=== PATIENT | female | born 1935 ===

== ENCOUNTER 2017-12-29 09:59 | Inpatient (IN) | payer MEDICARE ==
--- NOTE | 2017-12-29 10:33 | ED PDOC ---
HPI: SOB/CHF/COPD Time Seen by Provider: 12/29/17 10:00 Chief Complaint (Nursing): Shortness Of Breath Chief Complaint (Provider): Shortness of breath History Per: Patient History/Exam Limitations: no limitations Onset/Duration Of Symptoms: Days (x1) Current Symptoms Are (Timing): Still Present Associated Symptoms: denies: Fever, Chills, Chest Pain, Productive Cough Additional Complaint(s): Jennie Olmos is an 82 year old woman with a past medical history of atrial fibrillation, lymphedema, hypertension, diabetes, and venostasis who is presenting to the ER with complaints of shortness of breath, onset 1 day ago. Patient denies any fevers, chills, cough, vomiting, nausea or chest pain. She offers no other medical complaints at this time. PMD: Bright Liang Past Medical History Reviewed: Historical Data, Nursing Documentation, Vital Signs Vital Signs: Last Vital Signs Temp 97.6 F 12/30/17 19:51 Pulse 85 12/30/17 19:51 Resp 20 12/30/17 19:51 BP 141/76 12/30/17 19:51 Pulse Ox 96 12/30/17 19:51 - Medical History PMH: Atrial Fibrillation, Diabetes, HTN Other PMH: venostasis, lymphedema - Surgical History Surgical History: No Surg Hx - Family History Family History: States: Unknown Family Hx - Social History Current smoker - smoking cessation education provided: No Alcohol: None Drugs: Denies - Home Medications Home Medications: Ambulatory Orders Medication Instructions Recorded Clobetasol 0.05% [Temovate CREAM] 1 appl TOP Q12 12/29/17 Glipizide [Glipizide ER] 2.5 mg PO DAILY 12/29/17 LORazepam [Ativan] 0.5 mg PO Q12 PRN 12/29/17 Lisinopril [Zestril] 10 mg PO DAILY 12/29/17 Penicillin VK [Penicillin VK Tab] 500 mg PO DAILY 12/29/17 - Allergies Allergies/Adverse Reactions: Allergies Allergy/AdvReac Type Severity Reaction Status Date / Time No Known Allergies Allergy Verified 11/17/16 13:14 Review of Systems ROS Statement: Except As Marked, All Systems Reviewed And Found Negative Constitutional: Negative for: Fever, Chills Cardiovascular: Negative for: Chest Pain Respiratory: Positive for: Shortness of Breath. Negative for: Cough Gastrointestinal: Negative for: Nausea, Vomiting Physical Exam - Reviewed Nursing Documentation Reviewed: Yes Vital Signs Reviewed: Yes - Physical Exam Appears: Positive for: Non-toxic, No Acute Distress Head Exam: Positive for: ATRAUMATIC, NORMAL INSPECTION, NORMOCEPHALIC Skin: Positive for: Normal Color, Warm, Dry Eye Exam: Positive for: EOMI, Normal appearance, PERRL Neck: Positive for: Normal, Painless ROM, Supple Cardiovascular/Chest: Positive for: Other (rapid atrial fibrillation, heart rate in 180s) Respiratory: Positive for: Normal Breath Sounds, Other (tachypneic, unable to speak in full sentences) Gastrointestinal/Abdominal: Positive for: Normal Exam, Soft. Negative for: Tenderness Back: Positive for: Normal Inspection. Negative for: L CVA Tenderness, R CVA Tenderness, Vertebral Tenderness Extremity: Positive for: Normal ROM, Other (chronic venostasis changes, skin peeling bilaterally knee to foot) DTR - Ankle (R): 2+ DTR - Ankle (L): 2+ Neurologic/Psych: Positive for: Alert, Oriented - Laboratory Results Result Diagrams: 12/30/17 05:00 12/29/17 16:10 - ECG O2 Sat by Pulse Oximetry: 97 (RA) Pulse Ox Interpretation: Normal Medical Decision Making Medical Decision Making: Time: 10:19 Plan: shortness of breath --B-Type Natriuretic peptide --CMP --Troponin --CBC --Partial Thromboplastin --Coag --CXR --Cardizem 10 mg IVP --Blood culture --Urine Culture --Urinalysis Labs and workup ordered to rule out rapid atrial fibrillation, congestive heart failure exacerbation, or pneumonia. Called Dr. Liang, who has not returned call. 11:45 Dr. Liang called back, recommended consulting cardiology; states pt has no hist of a fib so this is new onset. consult with Dr. Nguyen. Pending call from Dr. Nguyen. Patient's family informed of the case and patient's status. 12:[address] Nguyen regarding patient. There is agreement to admit patient and he will see pt. Scribe Attestation: Documented by Lenore Camargo, acting as a scribe for Casey Mejia MD. Provider Scribe Attestation: All medical record entries made by the Scribe were at my direction and personally dictated by me. I have reviewed the chart and agree that the record accurately reflects my personal performance of the history, physical exam, medical decision making, and the department course for this patient. I have also personally directed, reviewed, and agree with the discharge instructions and disposition. Disposition - Clinical Impression Clinical Impression: Chronic congestive heart failure, Dyspnea - Patient ED Disposition Is Patient to be Admitted: Yes - Disposition Disposition Time: 12:00 Condition: GUARDED
[2017-12-29 10:34] VITALS: BMI 44.9
[2017-12-29 11:04] LABS: BASO # 0.1 K/uL (0.0-0.2); BASO % 0.6 % (0.0-2.0); EOS # 0.1 K/uL (0.0-0.7); EOS % 0.4 % (0.0-4.0); HEMOGLOBIN 12.7 g/dL (12.0-16.0); LYMPH # 2.4 K/uL (1.0-4.3); LYMPH % 18.1 % (20.0-40.0); MEAN CELL VOLUME 71.3 fl (81.0-99.0); MEAN CORPUSCULAR HEMOGLOBIN 21.9 pg (27.0-31.0); MEAN CORPUSCULAR HGB CONC 30.7 g/dL (33.0-37.0); MEAN PLATELET VOLUME 9.7 fl (7.2-11.7); MONO # 0.7 K/uL (0.0-0.8); MONO % 5.2 % (0.0-10.0); NEUT # 10.2 K/uL (1.8-7.0); NEUT % 75.7 % (50.0-75.0); NRBC % 0.1 % (0.0-0.0); RBC 5.82 Mil/uL (3.80-5.20); WHITE BLOOD COUNT 13.5 K/uL (4.8-10.8)
[2017-12-29 11:06] LABS: PROTHROMBIN TIME 10.5 Seconds (9.8-13.1)
[2017-12-29 11:08] LABS: PARTIAL THROMBOPLASTIN TIME 23.5 Seconds (25.6-37.1)
[2017-12-29 11:14] LABS: GFR AFRICAN-AMERICAN > 60; GFR NON-AFRICAN AMERICAN > 60
[2017-12-29 11:19] LABS: ALB/GLOB RATIO 0.9 (1.0-2.1); ALBUMIN 3.8 g/dL (3.5-5.0); ALT/SGPT 22 U/L (9-52); AST/SGOT 36 U/L (14-36); BLOOD UREA NITROGEN 27 mg/dl (7-17)
[2017-12-29 11:24] LABS: B-TYPE NATRIURETIC PEPTIDE 3530 pg/ml (0-900)
--- NOTE | 2017-12-29 12:23 | RAD ---
PROCEDURE: CHEST RADIOGRAPH, 1 VIEW HISTORY: Shortness of breath. COMPARISON: 03/01/2013 FINDINGS: LUNGS: Clear. PLEURA: No pneumothorax or pleural fluid seen. CARDIOVASCULAR: Cardiomegaly. No evidence of acute, significant cardiovascular disease. OSSEOUS STRUCTURES: No significant abnormalities. VISUALIZED UPPER ABDOMEN: Normal. OTHER FINDINGS: None. IMPRESSION: No active disease. No acute/significant interval changes.
--- NOTE | 2017-12-29 18:38 | CP.PCM.CON ---
History of Present Illness - History of Present Illness History of Present Illness: 82 year old female admitted with rapid atrial fibrillation for 3 days. Pt reports dyspnea. Denies chest pain during tachycardia. PMH Htn, DM2, Chronic LE edema Pt converted to NSR with 10 mg IV Cardiazem. Hemodynamically stable. CXR is normal. No pleuretic pain. HR 86 bpm. Past Patient History - Infectious Disease Hx of Infectious Diseases: None - Past Medical History & Family History Past Medical History?: Yes - Past Social History Smoking Status: Never Smoked - CARDIAC Hx Atrial Fibrillation: Yes Hx Hypertension: Yes - RENAL Hx Chronic Kidney Disease: No - ENDOCRINE/METABOLIC Hx Diabetes Mellitus Type 2: Yes - INTEGUMENTARY Hx Cellulitis: Yes - MUSCULOSKELETAL/RHEUMATOLOGICAL Hx Falls: No - PSYCHIATRIC Hx Substance Use: No - ANESTHESIA Hx Anesthesia: No Hx Anesthesia Reactions: No Hx Malignant Hyperthermia: No Has any member of the family had a problem w/ anesthesia?: No Meds Allergies/Adverse Reactions: Allergies Allergy/AdvReac Type Severity Reaction Status Date / Time No Known Allergies Allergy Verified 11/17/16 13:14 - Medications Medications: Current Medications Clobetasol Propionate (Temovate Cream) 1 applic TOP Q12 [facility] Enoxaparin Sodium (Lovenox) 40 mg SC DAILY [facility] PRN Reason: Protocol Glipizide (Glucotrol Xl) 2.5 mg PO DAILY [facility] Vancomycin HCl 1 gm/ Sodium (Chloride) 250 mls @ 166.667 mls/hr IVPB Q12H [facility]J PRN Reason: Protocol Lisinopril (Zestril) 10 mg PO DAILY TJ Lorazepam (Ativan) 0.5 mg PO Q12 PRN PRN Reason: Anxiety Penicillin V Potassium (Pen-Vee K) 500 mg PO DAILY [facility] PRN Reason: Protocol Last Admin: 12/29/17 18:08 Dose: 500 mg Physical Exam - Neck Exam Neck exam: Positive for: Normal Inspection - Respiratory Exam Respiratory Exam: Clear to Auscultation Bilateral - Cardiovascular Exam Cardiovascular Exam: REGULAR RHYTHM - GI/Abdominal Exam GI & Abdominal Exam: Normal Bowel Sounds - Extremities Exam Extremities exam: Positive for: pedal edema Additional comments: chronic stasis changes Results - Vital Signs Recent Vital Signs: Last Vital Signs Temp 97.1 F L 12/29/17 15:36 Pulse 76 12/29/17 15:36 Resp 20 12/29/17 15:58 BP 145/80 12/29/17 15:36 Pulse Ox 99 12/29/17 15:36 - Labs Result Diagrams: 12/29/17 10:41 12/29/17 16:10 Labs: Laboratory Results - last 24 hr 12/29/17 12/29/17 12/29/17 10:41 10:41 10:41 WBC 13.5 H RBC 5.82 H Hgb 12.7 Hct 41.5 MCV 71.3 L MCH 21.9 L MCHC 30.7 L RDW 17.0 H Plt Count 294 MPV 9.7 Neut % (Auto) 75.7 H Lymph % (Auto) 18.1 L [place] % (Auto) 5.2 Eos % (Auto) 0.4 Baso % (Auto) 0.6 Neut # (Auto) 10.2 H Lymph # (Auto) 2.4 [place] # (Auto) 0.7 Eos # (Auto) 0.1 Baso # (Auto) 0.1 PT 10.5 INR 1.0 APTT 23.5 L Sodium 141 Potassium 5.4 H Chloride 102 Carbon Dioxide 23 Anion Gap 21 H BUN 27 H Creatinine 0.7 Est GFR ( Amer) > 60 Est GFR (Non-Af Amer) > 60 Random Glucose 213 H Calcium 9.0 Total Bilirubin 0.7 AST 36 ALT 22 Alkaline Phosphatase 87 Troponin I < 0.0120 NT-Pro-B Natriuret Pep 3530 H Total Protein 8.0 Albumin 3.8 Globulin 4.2 H Albumin/Globulin Ratio 0.9 L 12/29/17 16:10 WBC RBC Hgb Hct MCV MCH MCHC RDW Plt Count MPV Neut % (Auto) Lymph % (Auto) [place] % (Auto) Eos % (Auto) Baso % (Auto) Neut # (Auto) Lymph # (Auto) [place] # (Auto) Eos # (Auto) Baso # (Auto) PT INR APTT Sodium Potassium 4.7 Chloride Carbon Dioxide Anion Gap BUN Creatinine Est GFR ( Amer) Est GFR (Non-Af Amer) Random Glucose Calcium Total Bilirubin AST ALT Alkaline Phosphatase Troponin I < 0.0120 NT-Pro-B Natriuret Pep Total Protein Albumin Globulin Albumin/Globulin Ratio Assessment & Plan - Assessment and Plan (Free Text) Assessment: 82 year old female with rapid atrial fibrillation , high ventricular rate, converted to NSR. R/O FL, EKG NSR no acute st-t changes. Pt resting comfortably BNP elevated #1 start Amiodarone 200mg qd now #2 ECHO for LVEF #3 Continue Telemetry #4 Check TFTs
--- NOTE | 2017-12-29 18:44 | CP.PCM.CON ---
History of Present Illness - History of Present Illness History of Present Illness: Jennie Olmos is an 82 year old woman with a past medical history of atrial fibrillation, lymphedema, hypertension, diabetes, and venostasis who is presenting to the ER with complaints of shortness of breath, onset 1 day ago. Patient denies any fevers, chills, cough, vomiting, nausea or chest pain. She offers no other medical complaints at this time. Has chronic lymphedema on Pen VK for over 1 year from [facility] redness and swelling recently worse now with SOB new a fib r/o sepsis - Medical History PMH: Atrial Fibrillation, Diabetes, HTN Other PMH: venostasis, lymphedema Review of Systems - Review of Systems All systems: reviewed and no additional remarkable complaints except - Constitutional Constitutional: As Per HPI - EENT Eyes: absent: As Per HPI, Blind Spots, Blurred Vision, Change in Vision, Decreased Night Vision, Diplopia, Discharge, Dry Eye, Exophthalmos, Floaters, Irritation, Itchy Eyes, Loss of Peripheral Vision, Pain, Photophobia, Requires Corrective Lenses, Sees Flashes, Spots in Vision, Tunnel Vision, Other Visual Disturbances, Loss of Vision, Other Ears: absent: As Per HPI, Decreased Hearing, Ear Discharge, Ear Pain, Tinnitus, Abnormal Hearing, Disequilibrium, Dizziness, Other Nose/Mouth/Throat: absent: As Per HPI, Epistaxis, Nasal Congestion, Nasal Discharge, Nasal Obstruction, Nasal Trauma, Nose Pain, Post Nasal Drip, Sinus Pain, Sinus Pressure, Bleeding Gums, Change in Voice, Dental Pain, Dry Mouth, Dysphagia, Halitosis, Hoarsness, Lip Swelling, Mouth Lesions, Mouth Pain, Odynophagia, Sore Throat, Throat Swelling, Tongue Swelling, Facial Pain, Neck Pain, Neck Mass, Other - Breasts Breasts: absent: As Per HPI, Change in Shape, Mass, Pain, Nipple Discharge, Nipple Inversion, Skin Changes, Swelling, Other - Cardiovascular Cardiovascular: As Per HPI - Respiratory Respiratory: As Per HPI, Cough, Dyspnea. absent: Hemoptysis - Gastrointestinal Gastrointestinal: absent: As Per HPI, Abdominal Pain, Belching, Bloating, Change in Bowel Habits, Change in Stool Character, Coffee Ground Emesis, Constipation, Cramping, Diarrhea, Dyspepsia, Dysphagia, Early Satiety, Excessive Flatus, Fecal Incontinence, Heartburn, Hematemesis, Hematochezia, Loose Stools, Melena, Nausea, Odynophagia, Temesmus, Vomiting, Other - Genitourinary Genitourinary: absent: As Per HPI, Change in Urinary Stream, Difficulty Urinating, Dysuria, Flank Pain, Hematuria, Pyuria, Nocturia, Urinary Incontinence, Urinary Frequency, Urinary Hesitance, Urinary Urgency, Voiding Freq/Small Amts, Freq UTI, Hx Renal/Bladder Calculi, Hx /Renal Surgery, Bladder Distension, Other - Reproductive: Female Reproductive:Female: absent: As Per HPI, Amenorrhea, Amenorrhea/ Control, Currently Menstual, Cycle <21 Days, Cycle >35 Days, Cycle Variable, Menses 1-7 Days, Menses >/= 8 Days, Menses Variable, Cycle > 4 Weeks Between, No Menses for 6 Months, Heavy Menses, Light Menses, Normal Menses, Spotting Between Cycles , S/P Hysterectomy, Menopausal, Post Menopausal, Premenarche, Abnormal Vaginal Bleeding, Dysmenorrhea, Dyspareunia, Genital Lesions, Genital Pruritis, Pelvic Pain, Prolapse Symptoms, Sexual Dysfunction, Vaginal Discharge, Vaginal Dryness , Vaginal Odor, Vaginal Pruritis, Other - Menstruation Menstruation: absent: As Per HPI, Amenorrhea, Amenorrhea/ Control, Currently Menstual, Cycle <21 Days, Cycle >35 Days, Cycle Variable, Menses 1-7 Days, Menses >/= 8 Days, Menses Variable, Cycle > 4 Weeks Between, No Menses for 6 Months, Heavy Menses, Light Menses, Normal Menses, Spotting Between Cycles , S/P Hysterectomy, Menopausal, Post Menopausal, Premenarche, Abnormal Vaginal Bleeding, Dysmenorrhea, Other - Musculoskeletal Musculoskeletal: As Per HPI - Integumentary Integumentary: As Per HPI - Neurological Neurological: absent: As Per HPI, Abnormal Gait, Abnormal Hearing, Abnormal Movements, Abnormal Speech, Behavioral Changes, Burning Sensations, Confusion, Convulsions, Disequilibrium, Dizziness, Numbness, Focal Weakness, Frequent Falls , Headaches, Lack of Coordination, Loss of Vision, Memory Loss, Paresthesias, Radicular Pain, Restless Legs, Sensory Deficit, Syncope, Tingling, Tremor, Vertigo, Weakness, Other Visual Disturbances, Other - Psychiatric Psychiatric: absent: As Per HPI, Abnormal Sleep Pattern, Anhedonia, Anxiety, Auditory Hallucinations, Behavioral Changes, Change in Appetite, Change in Libido, Confusion, Depression, Difficulty Concentrating, Hallucinations, Homicidal Ideation, Hopelessness, Irritability, Memory Loss, Mood Swings, Panic Attacks, Paranoia, Suicidal Ideation, Visual Hallucinations, Tactile Hallucinations, Other - Endocrine Endocrine: absent: As Per HPI, Change in Body Appearance, Change in Libido, Cold Intolorance, Deepening of Voice, Excessive Sweating, Fatigue, Flushing, Heat Intolorance, Increase in Ring/Shoe/Hat Size, Palpitations, Polydipsia, Polyphagia, Polyuria, Other - Hematologic/Lymphatic Hematologic: absent: As Per HPI, Easy Bleeding, Easy Bruising, Lymphadenopathy, Other Past Patient History - Infectious Disease Hx of Infectious Diseases: None - Past Medical History & Family History Past Medical History?: Yes - Past Social History Smoking Status: Never Smoked - CARDIAC Hx Atrial Fibrillation: Yes Hx Hypertension: Yes - RENAL Hx Chronic Kidney Disease: No - ENDOCRINE/METABOLIC Hx Diabetes Mellitus Type 2: Yes - INTEGUMENTARY Hx Cellulitis: Yes - MUSCULOSKELETAL/RHEUMATOLOGICAL Hx Falls: No - PSYCHIATRIC Hx Substance Use: No - ANESTHESIA Hx Anesthesia: No Hx Anesthesia Reactions: No Hx Malignant Hyperthermia: No Has any member of the family had a problem w/ anesthesia?: No Meds Allergies/Adverse Reactions: Allergies Allergy/AdvReac Type Severity Reaction Status Date / Time No Known Allergies Allergy Verified 11/17/16 13:14 - Medications Medications: Current Medications Clobetasol Propionate (Temovate Cream) 1 applic TOP Q12 [facility] Enoxaparin Sodium (Lovenox) 40 mg SC DAILY [facility]J PRN Reason: Protocol Glipizide (Glucotrol Xl) 2.5 mg PO DAILY [facility] Vancomycin HCl 1 gm/ Sodium (Chloride) 250 mls @ 166.667 mls/hr IVPB Q12H [facility]J PRN Reason: Protocol Lisinopril (Zestril) 10 mg PO DAILY [facility]J Lorazepam (Ativan) 0.5 mg PO Q12 PRN PRN Reason: Anxiety Penicillin V Potassium (Pen-Vee K) 500 mg PO DAILY [facility]J PRN Reason: Protocol Last Admin: 12/29/17 18:08 Dose: 500 mg Physical Exam - Constitutional Appears: In Acute Distress - Head Exam Head Exam: NORMOCEPHALIC - Eye Exam Eye Exam: absent: Scleral icterus Pupil Exam: NORMAL ACCOMODATION - ENT Exam ENT Exam: Mucous Membranes Dry, Normal External Ear Exam, Normal Oropharynx - Neck Exam Neck exam: Negative for: Lymphadenopathy - Respiratory Exam Respiratory Exam: Decreased Breath Sounds - Cardiovascular Exam Cardiovascular Exam: REGULAR RHYTHM - GI/Abdominal Exam GI & Abdominal Exam: Diminished Bowel Sounds, Soft. absent: Tenderness - Rectal Exam Rectal Exam: Deferred - Exam Exam: NORMAL INSPECTION - Extremities Exam Extremities exam: Positive for: calf tenderness, pedal edema, tenderness. Negative for: pedal pulses present - Back Exam Back exam: absent: CVA tenderness (L), CVA tenderness (R) - Neurological Exam Neurological exam: Alert, CN II-XII Intact, Oriented x3, Reflexes Normal - Psychiatric Exam Psychiatric exam: Normal Mood - Skin Skin Exam: Dry, Intact Results - Vital Signs Recent Vital Signs: Last Vital Signs Temp 97.1 F L 12/29/17 15:36 Pulse 76 12/29/17 15:36 Resp 20 12/29/17 15:58 BP 145/80 12/29/17 15:36 Pulse Ox 99 12/29/17 15:36 - Labs Result Diagrams: 12/29/17 10:41 12/29/17 16:10 Labs: Laboratory Results - last 24 hr 12/29/17 12/29/17 12/29/17 10:41 10:41 10:41 WBC 13.5 H RBC 5.82 H Hgb 12.7 Hct 41.5 MCV 71.3 L MCH 21.9 L MCHC 30.7 L RDW 17.0 H Plt Count 294 MPV 9.7 Neut % (Auto) 75.7 H Lymph % (Auto) 18.1 L [place] % (Auto) 5.2 Eos % (Auto) 0.4 Baso % (Auto) 0.6 Neut # (Auto) 10.2 H Lymph # (Auto) 2.4 [place] # (Auto) 0.7 Eos # (Auto) 0.1 Baso # (Auto) 0.1 PT 10.5 INR 1.0 APTT 23.5 L Sodium 141 Potassium 5.4 H Chloride 102 Carbon Dioxide 23 Anion Gap 21 H BUN 27 H Creatinine 0.7 Est GFR ( Amer) > 60 Est GFR (Non-Af Amer) > 60 Random Glucose 213 H Calcium 9.0 Total Bilirubin 0.7 AST 36 ALT 22 Alkaline Phosphatase 87 Troponin I < 0.0120 NT-Pro-B Natriuret Pep 3530 H Total Protein 8.0 Albumin 3.8 Globulin 4.2 H Albumin/Globulin Ratio 0.9 L 12/29/17 16:10 WBC RBC Hgb Hct MCV MCH MCHC RDW Plt Count MPV Neut % (Auto) Lymph % (Auto) [place] % (Auto) Eos % (Auto) Baso % (Auto) Neut # (Auto) Lymph # (Auto) [place] # (Auto) Eos # (Auto) Baso # (Auto) PT INR APTT Sodium Potassium 4.7 Chloride Carbon Dioxide Anion Gap BUN Creatinine Est GFR ( Amer) Est GFR (Non-Af Amer) Random Glucose Calcium Total Bilirubin AST ALT Alkaline Phosphatase Troponin I < 0.0120 NT-Pro-B Natriuret Pep Total Protein Albumin Globulin Albumin/Globulin Ratio Assessment & Plan - Assessment and Plan (Free Text) Assessment: afib chf r/o sepsis cellulitis venous stasis stasis dermatitis r/o cor pulmonale iv rx in progress cont iv rx and wound care
--- NOTE | 2017-12-29 21:33 | CP.PCM.HP ---
History of Present Illness - History of Present Illness History of Present Illness: 82 yo with hx HTN NIDDM Chronic Lymphadema Asthma admitted for Afib new onset Present on Admission - Present on Admission Any Indicators Present on Admission: No Past Patient History - Infectious Disease Hx of Infectious Diseases: None - Past Medical History & Family History Past Medical History?: Yes - Past Social History Smoking Status: Never Smoked - CARDIAC Hx Atrial Fibrillation: Yes Hx Hypertension: Yes - RENAL Hx Chronic Kidney Disease: No - ENDOCRINE/METABOLIC Hx Diabetes Mellitus Type 2: Yes - INTEGUMENTARY Hx Cellulitis: Yes - MUSCULOSKELETAL/RHEUMATOLOGICAL Hx Falls: No - PSYCHIATRIC Hx Substance Use: No - ANESTHESIA Hx Anesthesia: No Hx Anesthesia Reactions: No Hx Malignant Hyperthermia: No Has any member of the family had a problem w/ anesthesia?: No Meds Allergies/Adverse Reactions: Allergies Allergy/AdvReac Type Severity Reaction Status Date / Time No Known Allergies Allergy Verified 11/17/16 13:14 Physical Exam - Respiratory Exam Respiratory Exam: NORMAL BREATHING PATTERN - Cardiovascular Exam Cardiovascular Exam: REGULAR RHYTHM - GI/Abdominal Exam GI & Abdominal Exam: Normal Bowel Sounds Results - Vital Signs Recent Vital Signs: Last Vital Signs Temp 98.2 F 12/29/17 20:08 Pulse 87 12/29/17 21:00 Resp 20 12/29/17 20:08 BP 139/79 12/29/17 20:08 Pulse Ox 97 12/29/17 20:08 - Labs Result Diagrams: 12/29/17 10:41 12/29/17 16:10 Labs: Laboratory Results - last 24 hr 12/29/17 12/29/17 12/29/17 10:41 10:41 10:41 WBC 13.5 H RBC 5.82 H Hgb 12.7 Hct 41.5 MCV 71.3 L MCH 21.9 L MCHC 30.7 L RDW 17.0 H Plt Count 294 MPV 9.7 Neut % (Auto) 75.7 H Lymph % (Auto) 18.1 L [place] % (Auto) 5.2 Eos % (Auto) 0.4 Baso % (Auto) 0.6 Neut # (Auto) 10.2 H Lymph # (Auto) 2.4 [place] # (Auto) 0.7 Eos # (Auto) 0.1 Baso # (Auto) 0.1 PT 10.5 INR 1.0 APTT 23.5 L Sodium 141 Potassium 5.4 H Chloride 102 Carbon Dioxide 23 Anion Gap 21 H BUN 27 H Creatinine 0.7 Est GFR ( Amer) > 60 Est GFR (Non-Af Amer) > 60 Random Glucose 213 H Hemoglobin A1c Calcium 9.0 Total Bilirubin 0.7 AST 36 ALT 22 Alkaline Phosphatase 87 Troponin I < 0.0120 NT-Pro-B Natriuret Pep 3530 H Total Protein 8.0 Albumin 3.8 Globulin 4.2 H Albumin/Globulin Ratio 0.9 L 12/29/17 12/29/17 16:10 16:10 WBC RBC Hgb Hct MCV MCH MCHC RDW Plt Count MPV Neut % (Auto) Lymph % (Auto) [place] % (Auto) Eos % (Auto) Baso % (Auto) Neut # (Auto) Lymph # (Auto) [place] # (Auto) Eos # (Auto) Baso # (Auto) PT INR APTT Sodium Potassium 4.7 Chloride Carbon Dioxide Anion Gap BUN Creatinine Est GFR ( Amer) Est GFR (Non-Af Amer) Random Glucose Hemoglobin A1c 7.5 H Calcium Total Bilirubin AST ALT Alkaline Phosphatase Troponin I < 0.0120 NT-Pro-B Natriuret Pep Total Protein Albumin Globulin Albumin/Globulin Ratio Assessment & Plan - Assessment and Plan (Free Text) Assessment: Afib new onset HTN Converted to NSR cardiology Amiodarone Echo NIDDM AIC 7.5 Chronic Lymphadema on Penicillin Cellulitis ABX ID - Date & Time Date: 12/29/17 Time: 22:22
[2017-12-30 06:47] LABS: HEMOGLOBIN 12.1 g/dL (12.0-16.0); MEAN CELL VOLUME 71.7 fl (81.0-99.0); MEAN CORPUSCULAR HEMOGLOBIN 22.3 pg (27.0-31.0); MEAN CORPUSCULAR HGB CONC 31.1 g/dL (33.0-37.0); RBC 5.44 Mil/uL (3.80-5.20); RED CELL DISTRIBUTION WIDTH 16.7 % (11.5-14.5); WHITE BLOOD COUNT 12.4 K/uL (4.8-10.8)
[2017-12-30 07:11] LABS: T4 9.25 ug/dl (5.5-11.0)
[2017-12-30] MEDS ORDERED: Enoxaparin 40 mg Syringe SC SCH (09:00)
[2017-12-30] MEDS ORDERED: GlipiZIDE 2.5 mg SR Tab PO SCH (09:00)
--- NOTE | 2017-12-30 11:37 | CARD ---
APPROVED REPORT EXAM: Two-dimensional and M-mode echocardiogram with Doppler and color Doppler. Other Information Quality : AverageRhythm : Atrial Fibrillation INDICATION Atrial Fibrillation 2D DIMENSIONS IVSd1.20 (0.7-1.1cm)LVDd4.25 (3.9-5.9cm) LVOT Diameter2.12 (1.8-2.4cm)PWd1.10 (0.7-1.1cm) IVSs1.12 (0.8-1.2cm)LVDs3.16 (2.5-4.0cm) FS (%) 25.7 %PWs1.46 (0.8-1.2cm) M-Mode DIMENSIONS Left Atrium (MM)4.28 (2.5-4.0cm)IVSd1.00 (0.7-1.1cm) Aortic Root3.19 (2.2-3.7cm)LVDd5.78 (4.0-5.6cm) Aortic Cusp Exc.1.81 (1.5-2.0cm)PWd1.06 (0.7-1.1cm) IVSs1.88 cmFS (%) 40 % LVDs3.47 (2.0-3.8cm)PWs1.25 cm Mitral Valve MV E Bdpzeuhw54.8cm/sMV DECEL [id number] A Odrjjjbg545.0cm/s MV [id number] ratio0.9MVA (PHT)3.49cm2 TDI Lateral E' Peak V11.24cm/sMedial E' Peak V8.39cm/sE/Lateral E'8.9 E/Medial E'11.9 Pulmonary Valve PV Peak Bxyxfzll570.2cm/s Tricuspid Valve TR Peak [id number]/sRAP [id number] Peak Gr.27mmHg [id number] LEFT VENTRICLE The left ventricle is normal size. The left ventricular function is normal. The left ventricular ejection fraction is within the normal range. The Ejection Fraction is 55-60%. There is normal LV segmental wall motion. Transmitral Doppler flow pattern is Grade I-abnormal relaxation pattern. RIGHT VENTRICLE The right ventricle is normal size. The right ventricular systolic function is normal. ATRIA The left atrium size is normal. The right atrium size is normal. AORTIC VALVE The aortic valve is normal in structure. No aortic regurgitation is present. There is no aortic valvular stenosis. MITRAL VALVE The mitral valve is normal in structure. There is no mitral valve stenosis. There is no mitral valve regurgitation noted. TRICUSPID VALVE The tricuspid valve is normal in structure. There is no tricuspid valve regurgitation noted. PULMONIC VALVE The pulmonary valve is normal in structure. There is no pulmonic valvular regurgitation. GREAT VESSELS The aortic root is normal in size. The IVC is normal in size and collapses >50% with inspiration. PERICARDIAL EFFUSION The pericardium appears normal. <Conclusion> The left ventricle is normal size. The left ventricular function is normal. The left ventricular ejection fraction is within the normal range. The Ejection Fraction is 55-60%.
--- NOTE | 2017-12-30 12:26 | CP.PCM.PN ---
Subjective - Date & Time of Evaluation Date of Evaluation: 12/30/17 Time of Evaluation: 12:24 - Subjective Subjective: no c/o doing well Objective - Vital Signs/Intake and Output Vital Signs (last 24 hours): Temp Pulse Resp BP Pulse Ox 97.5 F L 77 20 140/64 100 12/30/17 08:00 12/30/17 09:24 12/30/17 08:00 12/30/17 08:00 12/30/17 08:00 - Medications Medications: Current Medications Amiodarone HCl (Cordarone) 200 mg PO DAILY [facility] Last Admin: 12/30/17 09:24 Dose: 200 mg Clobetasol Propionate (Temovate Cream) 1 applic TOP Q12 [facility] Last Admin: 12/30/17 09:25 Dose: Not Given Enoxaparin Sodium (Lovenox) 40 mg SC DAILY [facility] PRN Reason: Protocol Last Admin: 12/30/17 09:25 Dose: 40 mg Glipizide (Glucotrol Xl) 2.5 mg PO DAILY [facility] Last Admin: 12/30/17 09:25 Dose: 2.5 mg Vancomycin HCl 1 gm/ Sodium (Chloride) 250 mls @ 166.667 mls/hr IVPB Q12H [facility] PRN Reason: Protocol Last Admin: 12/30/17 05:06 Dose: 166.667 mls/hr Lisinopril (Zestril) 10 mg PO DAILY [facility] Last Admin: 12/30/17 09:26 Dose: 10 mg Lorazepam (Ativan) 0.5 mg PO Q12 PRN PRN Reason: Anxiety Penicillin V Potassium (Pen-Vee K) 500 mg PO DAILY [facility] PRN Reason: Protocol Last Admin: 12/30/17 09:25 Dose: 500 mg - Labs Labs: 12/30/17 05:00 12/29/17 16:10 PT 10.5 Seconds (9.8-13.1) 12/29/17 10:41 INR 1.0 (0.9-1.2) 12/29/17 10:41 APTT 23.5 Seconds (25.6-37.1) L 12/29/17 10:41 Assessment and Plan - Assessment and Plan (Free Text) Plan: Echo Normal LVEF, no significant valvular abn EKG tele NSR Amiodarone 200mg qd Tfts , Lfts normal Dc to home today Continue current medications + Amiodarone 200mg qd F/u in my office next week as outpt
--- NOTE | 2017-12-30 13:39 | PQF GENQUE ---
Dr. Liang, Please specify the intended meaning of 'rule out sepsis' : after the work up is completed Patient has sepsis Please document suspected or confirmed causative organism Please document suspected or confirmed localized infection Please clarify if sepsis is related to a device Sepsis was ruled out Please provide corresponding diagnosis for patient's clinical picture and associated treatment Patient had sepsis which is now resolved Other condition (please specify) OR Clinically unable to determine OR Unknown WBC:13.5->12.4 left shift Pulse:207->179->161->142 Respirations:20-> 28->19 B/P: 124/73->98/66->96/73 Procalcitonin: <0.05 Culture reports pending 12/29 ID note; Has chronic lymphedema on Pen VK for over 1 year from [facility] redness and swelling recently worse now with SOB new a fib r/o sepsis Assessment:afib chf r/o sepsis cellulitis venous stasis stasis dermatitis r/o cor pulmonale IVAB This form is a permanent part of the medical record Clarification of your documentation is requested to better reflect the severity of illness and intensity of treatment of your patient. Indicators present [] Specify: [] [] Specify: [] [] Specify: [] [] Specify: [] Location in the medical record that reflects the above clinical findings: [] Treatment Provided: [] PHYSICIAN'S RESPONSE Based on your medical judgment of the clinical indicators outlined above please clarify the following: [] Practitioner response [] If unable to determine, please check the box, sign and date. Present On Admission (POA) Indicator: [] Present at the time of admission [] Not present at the time of admission [] Clinically Undetermined In responding to this query, please exercise your independent professional judgment. The fact that a question is asked does not imply that any particular answer is desired or expected. Thank you for your clarification on this documentation. If you have any questions please call. * Thank you, Meg Lizarraga RN ext. #[phone] MTDD
--- NOTE | 2017-12-30 13:48 | PQF GENQUE ---
Dr. Nguyen, 2 queries: 1.Clarification of R/O MO: Ruling out MO versus Ruled out MO? 2. After the work up completed is MO ruled in or ruled out ? trop x 3: negative 12/29 Cardiology consult: 82 year old female with rapid atrial fibrillation , high ventricular rate, converted to NSR. R/O MO , EKG NSR no acute st-t changes. Pt resting comfortably BNP elevated #1 start Amiodarone 200mg qd now #2 ECHO for LVEF #3 Continue Telemetry #4 Check TFTs 12/30 Cardiology progress note: Echo Normal LVEF, no significant valvular abn EKG tele NSR Amiodarone 200mg qd Tfts , Lfts normal Dc to home today Continue current medications + Amiodarone 200mg qd F/u in my office next week as outpt This form is a permanent part of the medical record Clarification of your documentation is requested to better reflect the severity of illness and intensity of treatment of your patient. Indicators present [] Specify: [] [] Specify: [] [] Specify: [] [] Specify: [] Location in the medical record that reflects the above clinical findings: [] Treatment Provided: [] PHYSICIAN'S RESPONSE Based on your medical judgment of the clinical indicators outlined above please clarify the following: [] Practitioner response [] If unable to determine, please check the box, sign and date. Present On Admission (POA) Indicator: [] Present at the time of admission [] Not present at the time of admission [] Clinically Undetermined In responding to this query, please exercise your independent professional judgment. The fact that a question is asked does not imply that any particular answer is desired or expected. Thank you for your clarification on this documentation. If you have any questions please call. * Thank you, Meg Lizarraga RN ext. #[phone] MTDD
--- NOTE | 2017-12-30 13:53 | PQF GENQUE ---
, 2 queries: 1.Please provide a nutritional diagnosis, if known, related to the information below: if in agreement: i.e. Morbid Obesity The following clinical indicator is present in the medical record: BMI:47.1 5ft 241lb 2. If in agreement please add the BMI to your next progress note OR: Unable to determine OR:Other explanation of clinical finding This form is a permanent part of the medical record Clarification of your documentation is requested to better reflect the severity of illness and intensity of treatment of your patient. Indicators present [] Specify: [] [] Specify: [] [] Specify: [] [] Specify: [] Location in the medical record that reflects the above clinical findings: [] Treatment Provided: [] PHYSICIAN'S RESPONSE Based on your medical judgment of the clinical indicators outlined above please clarify the following: [] Practitioner response [] If unable to determine, please check the box, sign and date. Present On Admission (POA) Indicator: [] Present at the time of admission [] Not present at the time of admission [] Clinically Undetermined In responding to this query, please exercise your independent professional judgment. The fact that a question is asked does not imply that any particular answer is desired or expected. Thank you for your clarification on this documentation. If you have any questions please call. * Thank you, Meg Lizarraga RN ext. #[phone] MTDD
--- NOTE | 2017-12-30 13:59 | CP.PCM.PN ---
Subjective - Date & Time of Evaluation Date of Evaluation: 12/30/17 Time of Evaluation: 07:00 - Subjective Subjective: Jennie Olmos is an 82 year old woman with a past medical history of atrial fibrillation, lymphedema, hypertension, diabetes, and venostasis who is presenting to the ER with complaints of shortness of breath, onset 1 day ago. Patient denies any fevers, chills, cough, vomiting, nausea or chest pain. She offers no other medical complaints at this time. Has chronic lymphedema on Pen VK for over 1 year from [facility] redness and swelling recently worse now with SOB new a fib r/o sepsis Objective - Vital Signs/Intake and Output Vital Signs (last 24 hours): Temp Pulse Resp BP Pulse Ox 97.6 F 80 18 108/65 96 12/30/17 12:00 12/30/17 12:00 12/30/17 12:00 12/30/17 12:00 12/30/17 12:00 - Medications Medications: Current Medications Amiodarone HCl (Cordarone) 200 mg PO DAILY [facility] Last Admin: 12/30/17 09:24 Dose: 200 mg Clobetasol Propionate (Temovate Cream) 1 applic TOP Q12 [facility] Last Admin: 12/30/17 09:25 Dose: Not Given Enoxaparin Sodium (Lovenox) 40 mg SC DAILY [facility] PRN Reason: Protocol Last Admin: 12/30/17 09:25 Dose: 40 mg Glipizide (Glucotrol Xl) 2.5 mg PO DAILY [facility] Last Admin: 12/30/17 09:25 Dose: 2.5 mg Vancomycin HCl 1 gm/ Sodium (Chloride) 250 mls @ 166.667 mls/hr IVPB Q12H [facility] PRN Reason: Protocol Last Admin: 12/30/17 05:06 Dose: 166.667 mls/hr Lisinopril (Zestril) 10 mg PO DAILY [facility] Last Admin: 12/30/17 09:26 Dose: 10 mg Lorazepam (Ativan) 0.5 mg PO Q12 PRN PRN Reason: Anxiety Penicillin V Potassium (Pen-Vee K) 500 mg PO DAILY [facility] PRN Reason: Protocol Last Admin: 12/30/17 09:25 Dose: 500 mg - Labs Labs: 12/30/17 05:00 03/15/18 16:10 PT 10.5 Seconds (9.8-13.1) 12/29/17 10:41 INR 1.0 (0.9-1.2) 12/29/17 10:41 APTT 23.5 Seconds (25.6-37.1) L 12/29/17 10:41 - Constitutional Appears: Non-toxic, Chronically Ill - Head Exam Head Exam: NORMOCEPHALIC - Eye Exam Eye Exam: PERRL - ENT Exam ENT Exam: Mucous Membranes Dry - Neck Exam Neck Exam: absent: Lymphadenopathy - Respiratory Exam Respiratory Exam: Decreased Breath Sounds - Cardiovascular Exam Cardiovascular Exam: REGULAR RHYTHM - GI/Abdominal Exam GI & Abdominal Exam: Distended, Soft - Rectal Exam Rectal Exam: Deferred - Exam Exam: NORMAL INSPECTION - Extremities Exam Extremities Exam: Pedal Edema, Tenderness - Back Exam Back Exam: absent: CVA tenderness (L), CVA tenderness (R) - Neurological Exam Neurological Exam: Alert, Awake Assessment and Plan (1) Cellulitis Status: Acute - Assessment and Plan (Free Text) Assessment: Jennie Olmos is an 82 year old woman with a past medical history of atrial fibrillation, lymphedema, hypertension, diabetes, and venostasis who is presenting to the ER with complaints of shortness of breath, onset 1 day ago. Patient denies any fevers, chills, cough, vomiting, nausea or chest pain. She offers no other medical complaints at this time. Has chronic lymphedema on Pen VK for over 1 year from [facility] redness and swelling recently worse now with SOB new a fib r/o sepsis
--- NOTE | 2017-12-30 14:00 | PQF GENQUE ---
Dr. Liang, Site of Cellulitus? OR: Other explanation of clinical finding ER note in draft: Extremity: Positive for: Normal ROM, Other (chronic venostasis changes, skin peeling bilaterally knee to foot) H and P: Diagnoses include: Chronic Lymphadema on Penicillin ,Cellulitis Oral and IVAB; ID consult This form is a permanent part of the medical record Clarification of your documentation is requested to better reflect the severity of illness and intensity of treatment of your patient. Indicators present [] Specify: [] [] Specify: [] [] Specify: [] [] Specify: [] Location in the medical record that reflects the above clinical findings: [] Treatment Provided: [] PHYSICIAN'S RESPONSE Based on your medical judgment of the clinical indicators outlined above please clarify the following: [] Practitioner response [] If unable to determine, please check the box, sign and date. Present On Admission (POA) Indicator: [] Present at the time of admission [] Not present at the time of admission [] Clinically Undetermined In responding to this query, please exercise your independent professional judgment. The fact that a question is asked does not imply that any particular answer is desired or expected. Thank you for your clarification on this documentation. If you have any questions please call. * Thank you, Meg Lizarraga RN ext. #[phone] MTDD
--- NOTE | 2017-12-30 14:13 | PQF GENQUE ---
Dr. Liang, 2 queries: Please specify the type and acuity of heart failure in your progress notes: if in agreement with diagnosis VERSUS CHF ruled out? 1. TYPE: Combined systolic and diastolic Heart failure with reduced ejection fraction and diastolic dysfunction Diastolic HFpEF Systolic HFrEF Left heart failure Right heart failure Right heart failure due to left heart failure High Output failure End stage heart failure Other (please specify) Clinically unable to determine Unknown 2. ACUITY: Acute Chronic Acute on chronic Other (please specify) Clinically unable to determine Unknown ProBNP:[id number] 12/29 CXR: Impression: No active disease. No acute/significant interval changes. 12/30 Echo: The left ventricle is normal size. The left ventricular function is normal. This form is a permanent part of the medical record Clarification of your documentation is requested to better reflect the severity of illness and intensity of treatment of your patient. Indicators present [] Specify: [] [] Specify: [] [] Specify: [] [] Specify: [] Location in the medical record that reflects the above clinical findings: [] Treatment Provided: [] PHYSICIAN'S RESPONSE Based on your medical judgment of the clinical indicators outlined above please clarify the following: [] Practitioner response [] If unable to determine, please check the box, sign and date. Present On Admission (POA) Indicator: [] Present at the time of admission [] Not present at the time of admission [] Clinically Undetermined In responding to this query, please exercise your independent professional judgment. The fact that a question is asked does not imply that any particular answer is desired or expected. Thank you for your clarification on this documentation. If you have any questions please call. * Thank you, Meg Lizarraga RN ext. #[phone] MTDD
[2017-12-30 16:19] VITALS: RESP 20
--- NOTE | 2017-12-30 19:19 | CP.PCM.CON ---
History of Present Illness - History of Present Illness History of Present Illness: Podiatry Consult - Dr. Boudreaux 82 year old female patient PMHx afib, lymphedema, HTN, DM seen and evaluated at bedside for bilateral lower extremity redness and swelling. Patient OOB in chair w/legs in dependent position, NAD. Family present at bedside. Patient states the redness and swelling to her legs has been present for over 20 years; denies any recent change in redness, however is complaining of increased swelling and weeping to her legs. Patient states she sees an outside car wash manager who manages her edema via multilayer compression dressings. Currently, patient reports pain to bilateral LE which she believes is due to increased swelling. Patient states her SOB is resolving. Offers no other complaints. Denies N/V/F/D/ C/[place]/dizziness. Review of Systems - Review of Systems All systems: reviewed and no additional remarkable complaints except (as per HPI ) Past Patient History - Infectious Disease Hx of Infectious Diseases: None - Past Medical History & Family History Past Medical History?: Yes - Past Social History Smoking Status: Never Smoked - CARDIAC Hx Atrial Fibrillation: Yes Hx Hypertension: Yes - RENAL Hx Chronic Kidney Disease: No - ENDOCRINE/METABOLIC Hx Diabetes Mellitus Type 2: Yes - INTEGUMENTARY Hx Cellulitis: Yes - MUSCULOSKELETAL/RHEUMATOLOGICAL Hx Falls: No - PSYCHIATRIC Hx Substance Use: No - ANESTHESIA Hx Anesthesia: No Hx Anesthesia Reactions: No Hx Malignant Hyperthermia: No Has any member of the family had a problem w/ anesthesia?: No Meds Allergies/Adverse Reactions: Allergies Allergy/AdvReac Type Severity Reaction Status Date / Time No Known Allergies Allergy Verified 11/17/16 13:14 - Medications Medications: Current Medications Amiodarone HCl (Cordarone) 200 mg PO DAILY [facility] Last Admin: 12/30/17 09:24 Dose: 200 mg Clobetasol Propionate (Temovate Cream) 1 applic TOP Q12 [facility] Last Admin: 12/30/17 09:25 Dose: Not Given Enoxaparin Sodium (Lovenox) 40 mg SC DAILY [facility] PRN Reason: Protocol Last Admin: 12/30/17 09:25 Dose: 40 mg Glipizide (Glucotrol Xl) 2.5 mg PO DAILY [facility] Last Admin: 12/30/17 09:25 Dose: 2.5 mg Vancomycin HCl 1 gm/ Sodium (Chloride) 250 mls @ 166.667 mls/hr IVPB Q12H [facility] PRN Reason: Protocol Last Admin: 12/30/17 16:53 Dose: 166.667 mls/hr Lisinopril (Zestril) 10 mg PO DAILY [facility] Last Admin: 12/30/17 09:26 Dose: 10 mg Lorazepam (Ativan) 0.5 mg PO Q12 PRN PRN Reason: Anxiety Penicillin V Potassium (Pen-Vee K) 500 mg PO DAILY [facility] PRN Reason: Protocol Last Admin: 12/30/17 09:25 Dose: 500 mg Physical Exam - Constitutional Appears: Well, Non-toxic, No Acute Distress - Extremities Exam Additional comments: VASC: DP and PT pulses nonpalpable secondary to edema. +2 pitting edema noted to bilateral LE. Temperature gradient warm to warm b/l. No increase in warmth noted to areas of erythema. NEURO: Gross sensation diminished. DERM: Erythema extending from knee to ankle joint b/l, encompassing legs circumfirentially - overlying xerosis; weeping with serous drainage noted; no purulence; no fluctuance. Severe xerosis to bilateral feet. ORTHO: Pain on palpation RLE at areas of weeping. - Neurological Exam Neurological exam: Alert, Oriented x3 - Psychiatric Exam Psychiatric exam: Normal Affect, Normal Mood Results - Vital Signs Recent Vital Signs: Last Vital Signs Temp 97.5 F L 12/30/17 16:19 Pulse 83 12/30/17 16:19 Resp 20 12/30/17 16:19 BP 123/68 12/30/17 16:19 Pulse Ox 97 12/30/17 16:19 - Labs Result Diagrams: 12/30/17 05:00 12/29/17 16:10 Labs: Laboratory Results - last 24 hr 12/29/17 12/29/17 12/29/17 16:10 16:18 19:50 WBC RBC Hgb Hct MCV MCH MCHC RDW Plt Count POC Glucose (mg/dL) 121 H Hemoglobin A1c 7.5 H Troponin I Procalcitonin < 0.05 L Thyroxine (T4) TSH 3rd Generation 12/29/17 12/30/17 12/30/17 21:11 05:00 05:00 WBC 12.4 H RBC 5.44 H Hgb 12.1 Hct 39.0 MCV 71.7 L MCH 22.3 L MCHC 31.1 L RDW 16.7 H Plt Count 297 POC Glucose (mg/dL) 160 H Hemoglobin A1c Troponin I < 0.0120 Procalcitonin Thyroxine (T4) TSH 3rd Generation 12/30/17 12/30/17 12/30/17 05:00 05:27 10:57 WBC RBC Hgb Hct MCV MCH MCHC RDW Plt Count POC Glucose (mg/dL) 144 H 185 H Hemoglobin A1c Troponin I Procalcitonin Thyroxine (T4) 9.25 TSH 3rd Generation 2.11 12/30/17 15:53 WBC RBC Hgb Hct MCV MCH MCHC RDW Plt Count POC Glucose (mg/dL) 119 H Hemoglobin A1c Troponin I Procalcitonin Thyroxine (T4) TSH 3rd Generation Assessment & Plan - Assessment and Plan (Free Text) Assessment: 82 year old female patient PMHx afib, lymphedema, HTN, DM with bilateral lower extremity edema and erythema 2/2 lymphedema and venous stasis dermatitis Plan: Patient seen and evaluated Discussed with attending, Dr. Boudreaux Afebrile, WBC 12.4 RLE dressed with DSD Will continue to monitor bilateral LE Continue abx per ID - Penicillin VK 500mg PO, Vancomycin 1g IV Podiatry will continue to follow patient while in house
[2017-12-30 19:52] VITALS: BP 141/76; PULSE 85; TEMP 97.6
--- NOTE | 2017-12-30 20:00 | CP.PCM.PN ---
Subjective - Date & Time of Evaluation Date of Evaluation: 12/30/17 Time of Evaluation: 22:22 - Subjective Subjective: Above noted Objective - Vital Signs/Intake and Output Vital Signs (last 24 hours): Temp Pulse Resp BP Pulse Ox 97.6 F 85 20 141/76 96 12/30/17 19:51 12/30/17 19:51 12/30/17 19:51 12/30/17 19:51 12/30/17 19:51 - Medications Medications: Current Medications Amiodarone HCl (Cordarone) 200 mg PO DAILY [facility] Last Admin: 12/30/17 09:24 Dose: 200 mg Clobetasol Propionate (Temovate Cream) 1 applic TOP Q12 [facility] Last Admin: 12/30/17 09:25 Dose: Not Given Enoxaparin Sodium (Lovenox) 40 mg SC DAILY [facility] PRN Reason: Protocol Last Admin: 12/30/17 09:25 Dose: 40 mg Glipizide (Glucotrol Xl) 2.5 mg PO DAILY [facility] Last Admin: 12/30/17 09:25 Dose: 2.5 mg Vancomycin HCl 1 gm/ Sodium (Chloride) 250 mls @ 166.667 mls/hr IVPB Q12H [facility] PRN Reason: Protocol Last Admin: 12/30/17 16:53 Dose: 166.667 mls/hr Lisinopril (Zestril) 10 mg PO DAILY [facility] Last Admin: 12/30/17 09:26 Dose: 10 mg Lorazepam (Ativan) 0.5 mg PO Q12 PRN PRN Reason: Anxiety Penicillin V Potassium (Pen-Vee K) 500 mg PO DAILY [facility] PRN Reason: Protocol Last Admin: 12/30/17 09:25 Dose: 500 mg - Labs Labs: 12/30/17 05:00 12/29/17 16:10 PT 10.5 Seconds (9.8-13.1) 12/29/17 10:41 INR 1.0 (0.9-1.2) 12/29/17 10:41 APTT 23.5 Seconds (25.6-37.1) L 12/29/17 10:41 - Respiratory Exam Respiratory Exam: NORMAL BREATHING PATTERN - Cardiovascular Exam Cardiovascular Exam: REGULAR RHYTHM - GI/Abdominal Exam GI & Abdominal Exam: Normal Bowel Sounds Assessment and Plan - Assessment and Plan (Free Text) Assessment: Chronic Lymphadema on Penicillin Cellulitis ABX ID Afib new onset HTN Converted to NSR cardiology Amiodarone Echo ej fx good NIDDM AIC 7.5
[2017-12-31 01:57] LABS: SQUAMOUS EPITHIAL 7 /hpf (0-5); URINE BILIRUBIN NEGATIVE (NEGATIVE); URINE BLOOD MODERATE (NEGATIVE); URINE CLARITY CLOUDY (Clear); URINE COLOR YELLOW (YELLOW); URINE GLUCOSE (UA) 50 mg/dL (Normal); URINE LEUKOCYTE ESTERASE TRACE Leu/uL (Negative); URINE PROTEIN 30 mg/dL (NEGATIVE); URINE UROBILINOGEN 0.2-1.0 mg/dL (0.2-1.0)
[2018-01-01 23:31] VITALS: O2SAT 97
== END 2017-12-30 20:30 | disposition left against medical advice (07) | DRG 872 ==
LOC: H.ER 09:59 → H.ERHOLD 12:23 → H.TEL 15:09
PROVIDERS: ADMIT Family Medicine Geriatric Medicine; ATTEND Family Medicine Geriatric Medicine
DX: A41.9 Sepsis, unspecified organism (principal); I48.91 Unspecified atrial fibrillation; I50.9 Heart failure, unspecified; E66.01 Morbid (severe) obesity due to excess calories; L03.116 Cellulitis of left lower limb; Z68.42 Body mass index [BMI] 45.0-49.9, adult; E11.9 Type 2 diabetes mellitus without complications; I10 Essential (primary) hypertension; I87.2 Venous insufficiency (chronic) (peripheral); I87.8 Other specified disorders of veins; J44.9 Chronic obstructive pulmonary disease, unspecified; Z79.84 Long term (current) use of oral hypoglycemic drugs; I89.0 Lymphedema, not elsewhere classified; Z79.899 Other long term (current) drug therapy; R00.0 Tachycardia, unspecified; Z71.3 Dietary counseling and surveillance